=== PATIENT | female | born 1990 | race African-American/Black ===

== ENCOUNTER 2020-02-23 22:54 | Emergency (ER) | payer OTHER ==
[~2020-02-23] VITALS: Ht 157.5 cm; Wt 72.5 kg
[2020-02-24] MEDS ORDERED: FLUORESCEIN OPHTH 1 MG STRIP OS ONE (00:45)
[2020-02-24] MEDS ORDERED: TETRACAINE 0.5% OPHTH SOLN 4ML OS ONE (00:45)
[2020-02-24 01:42] VITALS: BP 135/65
== END 2020-02-24 01:44 | disposition short-term general hospital (02) ==
LOC: M ED 22:54
DX: S01.152A Open bite of left eyelid and periocular area, initial encounter (principal); S01.85XA Open bite of other part of head, initial encounter; W54.0XXA Bitten by dog, initial encounter; Y92.009 Unspecified place in unspecified non-institutional (private) residence as the place of occurrence of the external cause; Y93.89 Activity, other specified; Y99.8 Other external cause status